=== PATIENT | female | born 1970 | race Caucasian/White ===

== ENCOUNTER 2017-08-05 22:04 | Emergency (ER) | payer OTHER ==
[~2017-08-05] VITALS: Ht 175.3 cm; Wt 95.0 kg
[2017-08-05 22:07] VITALS: BP 142/81; PULSE 53; RESP 20; TEMP 97.6; O2SAT 97
[2017-08-05] MEDS ORDERED: antidepressant (23:27)
[2017-08-05] MEDS ORDERED: LEVA250T14 PO (23:27)
[2017-08-05] MEDS ORDERED: LEVO25TA4 PO (23:27)
[2017-08-05] MEDS ORDERED: MORPHINE SULFATE 4 MG/ML INJ IV PUSH ONE (23:30)
--- NOTE | 2017-08-05 23:41 | PD ---
HPI Chief Complaint: Fall Time Seen by Provider: 23:21 Travel History International Travel<30 days: No Contact w/Intl Traveler<30days: No Traveled to known affect area: No History of Present Illness HPI Patient is a 46-year-old female who presents to emergency room complaints of left sided shoulder pain. Patient reports that one hour prior to arrival to the emergency room, she tripped on a curb and landed onto her left shoulder. Patient reports no trauma to the head or neck, denies any loss of consciousness. Patient reports that she has pain to her left shoulder, reports that she is able to range of motion her left shoulder. Patient reports that her last full meal was around 4 PM tonight. Patient currently is not on any anticoagulants, denies any chest pain or shortness of breath. Patient with no other complaints at this time. PFSH Past Medical History Medical History: Denies Significant Hx Respiratory: Yes (HX OF BRONCHITIS) ?: Not Ectopic : Yes Past Surgical History Hysterectomy: Yes (partial ) Other Surgery: Yes (breast augmentation ) Social History Alcohol Use: Yes Tobacco Use: Yes Substance Use: No Allergies-Medications (Allergen,Severity, Reaction): Coded Allergies: Penicillins (Verified Allergy, Severe, 08/05/17) Reported Meds & Prescriptions Reported Meds & Active Scripts Active Reported Levaquin (Levofloxacin) Unknown Strength Tablet Unknown Dose PO DAILY [antidepressant ] Levothyroxine (Levothyroxine Sodium) Unknown Strength Tab Unknown Dose PO DAILY Review of Systems General / Constitutional: No: Fever Eyes: No: Visual changes HENT: No: Headaches Cardiovascular: No: Chest Pain or Discomfort Respiratory: No: Shortness of Breath Gastrointestinal: No: Abdominal Pain Genitourinary: No: Dysuria Musculoskeletal: Positive: Limited ROM (left shoulder), Pain (left shoulder) Skin: No Rash Neurologic: No: Weakness Psychiatric: No: Depression Endocrine: No: Polydipsia Hematologic/Lymphatic: No: Easy Bruising Physical Exam Narrative GENERAL: Mild distress SKIN: Focused skin assessment warm/dry. HEAD: Atraumatic. Normocephalic. EYES: Pupils equal and round. No scleral icterus. No injection or drainage. ENT: No nasal bleeding or discharge. Mucous membranes pink and moist. NECK: Trachea midline. No JVD. CARDIOVASCULAR: Regular rate and rhythm. No murmur appreciated. RESPIRATORY: No accessory muscle use. Clear to auscultation. Breath sounds equal bilaterally. GASTROINTESTINAL: Abdomen soft, non-tender, nondistended. Hepatic and splenic margins not palpable. MUSCULOSKELETAL: LUE: patient with no obvious open deformity, patient with good range of motion to left elbow and left wrist, pulses intact, neurovascular intact, patient unable to range of motion her left shoulder RUE: normal exam LLE & RLE: normal exam, patient ambulating in ER with normal gait. NEUROLOGICAL: Awake and alert. No obvious cranial nerve deficits. Motor grossly within normal limits. Normal speech. PSYCHIATRIC: Appropriate mood and affect; insight and judgment normal. Data Data Last Documented VS Vital Signs Date Time Temp Pulse Resp B/P (MAP) Pulse Ox O2 Delivery O2 Flow Rate FiO2 08/05/17 22:07 97.6 53 20 142/81 (101) 97 Room Air Orders Orders Shoulder, Complete (>2vws) (08/05/17 ) Humerus (Min 2vws) (08/05/17 ) Iv Access Insert/Monitor (08/05/17 23:25) Ecg Monitoring (08/05/17 23:25) Morphine Inj (Morphine Inj) (08/05/17 23:30) Chest, Single Ap (08/05/17 ) Radiology Film Requests (08/06/17 ) [facility] Medical Decision Making Medical Screen Exam Complete: Yes Emergency Medical Condition: Yes Interpretation(s) Vital Signs Date Time Temp Pulse Resp B/P (MAP) Pulse Ox O2 Delivery O2 Flow Rate FiO2 08/05/17 22:07 97.6 53 20 142/81 (101) 97 Room Air Differential Diagnosis Differential includes shoulder dislocation, humerus fracture Narrative Course 46-year-old female who presents to emergency with complaints of left shoulder pain after she tripped and fell over a curb one hour prior to presentation to the emergency room. Patient is currently not on any anticoagulants. An IV was placed for administration of pain medications. X-ray of the shoulder and humerus ordered. Last Impressions Shoulder X-Ray 08/05/17 0000 Signed Impressions: Service Date/Time: Sunday, August 06, 2017 00:10 - CONCLUSION: Acute comminuted proximal humeral fracture as detailed above. Bishop Yan Jr., MD Humerus X-Ray 08/05/17 0000 Signed Impressions: Service Date/Time: Sunday, August 06, 2017 00:08 - CONCLUSION: Comminuted proximal humeral fracture as detailed above. Bishop Yan Jr., MD Diagnosis Primary Impression: Fracture, humerus Referrals: Leonardo Koch MD Patient Instructions: General Instructions, Narcotic given in the ED Additional Instructions: Please call orthopedic surgeon first thing in the morning for earliest evaluation, please bring a copy of your radiology study given to you today for follow up Return to ER if symptoms worsen or progress Return to ER as needed Please do not drive or operate heavy machinery while taking narcotic pain medications Med/Other Pt SpecificInfo: Prescription(s) given Scripts Ibuprofen (Ibuprofen) 600 Mg Tab 600 MG PO Q6H Y for Pain/Inflammation, #40 TAB 0 Refills Prov: Siri Uriostegui DO 08/06/17 Oxycodone-Acetaminophen (Percocet) 5-325 mg Tab 1 TAB PO Q6H Y for PAIN, #20 TAB 0 Refills Prov: Siri Uriostegui DO 08/06/17 Siri Uriostegui DO Aug 05, 2017 23:41
--- NOTE | 2017-08-06 00:42 | RADRPT ---
EXAM DATE/TIME: 08/06/2017 00:08 [facility] COMPARISON: SHOULDER LEFT COMPLETE (>2VWS), August 06, 2017, 0:10. INDICATIONS : Pt tripped over curb, landed on left arm. Pain left shoulder MEDICAL HISTORY : None. SURGICAL HISTORY : None. ENCOUNTER: Initial ACUITY: 1 day PAIN SCORE: 10/10 LOCATION: Left Humerus FINDINGS: There is a comminuted fracture volar proximal humerus. There is approximately 1 cm separation of a do minant fracture fragment. No Sami or distraction. The remaining humerus is intact. CONCLUSION: Comminuted proximal humeral fracture as detailed above. Bishop Yan Jr., MD on August 06, 2017 at 0:39 Board Certified Radiologist. This report was verified electronically.
--- NOTE | 2017-08-06 00:45 | RADRPT ---
EXAM DATE/TIME: 08/06/2017 00:10 [facility] COMPARISON: No previous studies available for comparison. INDICATIONS : Pt tripped over curb, landed on left arm. Pain left shoulder MEDICAL HISTORY : None. SURGICAL HISTORY : None. ENCOUNTER: Initial ACUITY: 1 day PAIN SCORE: 10/10 LOCATION: Left Shoulder FINDINGS: There is an acute comminuted fracture involving the proximal humeral neck and adjacent diaphysis. The re is 1 cm of separation of a major fracture fragment. No angulation or distraction. Scapula and clav icle are intact. CONCLUSION: Acute comminuted proximal humeral fracture as detailed above. Bishop Yan Jr., MD on August 06, 2017 at 0:41 Board Certified Radiologist. This report was verified electronically.
--- NOTE | 2017-08-06 00:46 | RADRPT ---
EXAM DATE/TIME: 08/06/2017 00:16 [facility] COMPARISON: No previous studies available for comparison. INDICATIONS : Pt tripped over curb, landed on left arm. Pain left shoulder MEDICAL HISTORY : None. SURGICAL HISTORY : None. ENCOUNTER: Initial ACUITY: 1 day PAIN SCORE: 6/10 LOCATION: Bilateral chest FINDINGS: A single view of the chest demonstrates the lungs to be symmetrically aerated without evidence of mas s, infiltrate or effusion. The cardiomediastinal contours are unremarkable. Acute proximal humeral f racture detailed in the left shoulder discussion. CONCLUSION: 1. No acute cardio pulmonary disease. 2. Acute left proximal humeral fracture. Bishop Yan Jr., MD on August 06, 2017 at 0:43 Board Certified Radiologist. This report was verified electronically.
[2017-08-06] MEDS ORDERED: IBUP-232 PO (00:52)
[2017-08-06] MEDS ORDERED: PERC5TAB12 PO (00:52)
[2017-08-06] MEDS ORDERED: oxyCODONE/ACETAMINOPHEN 5 MG/325 MG TAB PO ONE (01:30)
[2017-08-14] MEDS ORDERED: ESCI20TA PO (09:38)
[2017-08-14] MEDS ORDERED: HYDR-3111 PO (09:38)
[2017-08-14] MEDS ORDERED: LEVO25TA4 PO (09:38)
== END 2017-08-06 01:46 | disposition home or self-care (01) ==
LOC: NEPC 22:04
DX: S42.202A Unspecified fracture of upper end of left humerus, initial encounter for closed fracture (principal); W18.09XA Striking against other object with subsequent fall, initial encounter; Y93.01 Activity, walking, marching and hiking; Y92.480 Sidewalk as the place of occurrence of the external cause
CPT/HCPCS: 71010; 73030; 73060; 96374; 99284; J2270

== ENCOUNTER → 2017-08-14 | Outpatient (CLI) | payer OTHER ==
[~2017-08-14] MED LIST: ESCI20TA PO; HYDR-3111 PO; HYDR-3516 PO; IBUP-232 PO; LEVA250T14 PO; LEVO25TA4 PO; PERC5TAB12 PO; antidepressant
[2017-08-14 09:45] LABS: AUTOMATED NEUTROPHIL # 3.5 TH/MM3 (1.8-7.7); BASOPHIL # 0.1 TH/MM3 (0-0.2); BASOPHIL % 0.9 % (0.0-2.0); EOSINOPHIL # 0.3 TH/MM3 (0-0.4); EOSINOPHIL % 4.3 % (0.0-4.0); HEMATOCRIT 37.3 % (35.0-46.0); HEMO FLAGS DIFF FINAL; LYMPH % 23.9 % (9.0-44.0); LYMPHOCYTE # 1.5 TH/MM3 (1.0-4.8); MEAN CELL VOLUME 99.5 FL (80.0-100.0); MEAN CORPUSCULAR HEMOGLOBIN 33.8 PG (27.0-34.0); MONO % 15.5 % (0.0-8.0); NEUT % 55.4 % (16.0-70.0); PLATELET COUNT 319 TH/MM3 (150-450); RED BLOOD COUNT 3.75 MIL/MM3 (4.00-5.30); RED CELL DISTRIBUTION WIDTH 14.8 % (11.6-17.2); WHITE BLOOD COUNT 6.4 TH/MM3 (4.0-11.0)
[2017-08-14 10:11] LABS: ANION GAP 3 MEQ/L (5-15); AST (GOT) 25 U/L (15-37); BICARBONATE 32.3 MEQ/L (21.0-32.0); BLOOD UREA NITROGEN 14 MG/DL (7-18); CHLORIDE 106 MEQ/L (98-107); GLOMERULAR FILTRATION RATE 99 ML/MIN (>89); GLUCOSE,FASTING 89 MG/DL (74-99); POTASSIUM 4.4 MEQ/L (3.5-5.1); SODIUM (NA) 141 MEQ/L (136-145)
[2017-08-14 10:12] LABS: ALT (GPT) 25 U/L (10-53)
[2017-08-14 10:15] LABS: ALKALINE PHOSPHATASE 64 U/L (45-117); TOTAL BILIRUBIN ADULT 0.7 MG/DL (0.2-1.0)
--- NOTE | 2017-08-15 15:44 | EKG ---
Date Performed: 08/14/2017 Time Performed: 09:59:41 PTAGE: 46 years EKG: Sinus rhythm WITH FIRST DEGREE AV BLOCK ABNORMAL ECG NO PREVIOUS TRACING DOCTOR: Unique Harrison Interpretating Date/Time 08/15/2017 15:42:39
== END ==
LOC: CPRE 09:13
PROVIDERS: ATTEND Orthopaedic Surgery
DX: Z01.810 Encounter for preprocedural cardiovascular examination (principal); Z01.812 Encounter for preprocedural laboratory examination; R94.31 Abnormal electrocardiogram [ECG] [EKG]; S42.222D 2-part displaced fracture of surgical neck of left humerus, subsequent encounter for fracture with routine healing; X58.XXXD Exposure to other specified factors, subsequent encounter
CPT/HCPCS: 36415; 80053; 85025; 93005

== ENCOUNTER 2017-08-15 07:21 | Observation (INO) | payer OTHER ==
[~2017-08-15] VITALS: Ht 174 cm; Wt 110.0 kg
[~2017-08-15 07:21] MED LIST changes: -HYDR-3516 PO; -LEVA250T14 PO; -PERC5TAB12 PO; -antidepressant
[2017-08-15] MEDS ORDERED: VANCOMYCIN 1250 MG/NS 250 ML (for 70-84 kg) IV SCH ×2 (08:00)
[2017-08-15] MEDS: CLINDAMYCIN 900 MG/NS 100 ML IV SCH ×2 (08:12)
[2017-08-15] MEDS ORDERED: POVIDONE IODINE 7.5% SCRUB 118 ML BOTTLE TOPICAL SCH (08:15)
[2017-08-15] MEDS ORDERED: LACTATED RINGER'S 1000 ML IV PRN (08:15)
[2017-08-15] MEDS ORDERED: METOPROLOL TARTRATE 25 MG TAB PO PRN (08:15)
[2017-08-15] MEDS ORDERED: POVIDONE IODINE 5% (ANTISEPSIS KIT) 4 APPLICATIONS EACH NARE PRN (08:15)
[2017-08-15] MEDS ORDERED: DO NOT ADM ANY ANTICOAGULANT DRUGS PRN ×2 (08:15→13:09)
[2017-08-15] MEDS ORDERED: INSULIN HUMAN REGULAR 1,000 UNITS/10 ML VIAL SQ PRN (08:15)
[2017-08-15] MEDS ORDERED: SODIUM CHLORID 0.9% 500 ML IV PRN (08:15)
[2017-08-15] MEDS ORDERED: CHLORHEXIDINE GLUCONATE 2 % 1 PACK (2 CLOTHS) TOPICAL PRN (08:15)
[2017-08-15] MEDS ORDERED: FAMOTIDINE 20 MG/2 ML VIAL ONE (08:43)
[2017-08-15] MEDS ORDERED: ACETAMINOPHEN 1000 MG/100 ML 100 ML IV ONE (08:43)
[2017-08-15] MEDS ORDERED: GENTAMICIN SULFATE 80 MG/2 ML VIAL ONE (08:54)
--- NOTE | 2017-08-15 09:32 | MH ---
cc: CORYMIKE DATE OF ADMISSION: 08/15/2017 DATE OF 1970 PREOPERATIVE DIAGNOSIS Comminuted displaced two-part fracture, left proximal humerus. PAST HISTORY She had history of seizures in her childhood but not in her adult life. She is not taking any antiseizure medication in her adult life. She suffers from depression, she is on antidepressants. She is a smoker and she has been counseled on the ill-effects of smoking on bone healing and tissue healing and has been advised to go on Chantix through the help of her primary care physician. She said she had used Chantix in the past and she does not see any problem doing that now. Hypothyroidism for which she takes thyroid supplements. 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 She also drinks alcohol moderately. PAST SURGICAL HISTORY 1. Hysterectomy. 2. Liposuction followed by infection for which she had to have incision and drainage in the back of both shoulders. She says it did not affect her bone or joint and it did not result in any restriction of range of motion. PRESENT HISTORY She fell on 08/05/2017 sustaining the injury to this left arm, seen in [facility] Emergency Room. She was evaluated, x-rayed and referred for outpatient care. She was seen by the undersigned on August 06, at which time it was decided to treat her by nonoperative means. She called 2 days later indicating that she felt that the fracture had moved and she had a lot of pain and therefore she was brought back and a new set of x-rays revealed significant displacement and therefore she is now being brought in for open reduction, internal fixation of this fracture of the plate and screws. The diagnosis, treatment, the potential risks, hazards and complications, expected results and postoperative course have all been discussed. We talked to her about possibility of delayed union, nonunion, possible permanent restriction range of motion of the shoulder and possibility of neurovascular injury. Informed consent has been obtained. She has followed the infection prevention protocol with [facility]. PHYSICAL EXAMINATION GENERAL: Physical examination reveals a moderately overweight white female who is 46 years old. HEENT: Head is normocephalic. Pupils reactive to light. She wears glasses. Extraocular movements normal. Face symmetrical. HEART: Regular rhythm. No murmurs. LUNGS: Clear to auscultation. ABDOMEN: Soft and supple. LEFT SHOULDER: Left shoulder has moderate swelling and lot of ecchymosis. There is a scar in the posterior axillary fold. More detailed examination not possible because of pain and the fracture. She has good radial pulse and no distal neurovascular deficit noted. MD ARSENIO Valdivia/ALEAH /8:49 AM /9:05 AM
[2017-08-15] MEDS ORDERED: DEXAMETHASONE SOD PHOS PF 10 MG/ML VIAL IV ONE (11:12)
[2017-08-15] MEDS ORDERED: BUPIVACAINE HCL PF 0.5% 30 ML VIAL NERV BLOCK ONE (11:12)
[2017-08-15] MEDS ORDERED: LIDOCAINE HCL 1% PF 5 ML AMPULE OTHER ONE (12:00)
[2017-08-15] MEDS ORDERED: ROCURONIUM INJ 50 MG/5 ML SYRINGE IV PUSH ONE (12:00)
[2017-08-15] MEDS ORDERED: PROPOFOL 200 MG/20 ML AMP IV ONE (12:00)
[2017-08-15] MEDS ORDERED: LACTATED RINGER'S 1000 ML INJ 1,000 ML IV ONE (12:00)
[2017-08-15] MEDS ORDERED: PHENYLEPH/NS 1000 MCG/10 ML SYR IV ONE (12:00)
[2017-08-15] MEDS ORDERED: MIDAZOLAM HCL 2 MG/2 ML VIAL IV ONE (12:00)
[2017-08-15] MEDS ORDERED: SODIUM CHLOR 0.9% (EXCEL) INJ 250 ML IV ONE (12:00)
[2017-08-15] MEDS ORDERED: NEOSTIGMINE 3 MG/3 ML SYR IV ONE (12:00)
[2017-08-15] MEDS ORDERED: PHENYLEPHRINE HCL 10 MG/ML VIAL IV ONE (12:00)
[2017-08-15] MEDS ORDERED: ePHEDrine/NS 25 MG/5 ML SYR IV ONE (12:00)
[2017-08-15] MEDS ORDERED: ONDANSETRON HCL 4 MG/2 ML VIAL IV PUSH ONE (12:00)
[2017-08-15] MEDS ORDERED: GLYCOPYRROLATE 1 MG/5 ML SYRINGE IV PUSH ONE (12:00)
[2017-08-15] MEDS ORDERED: ONDANSETRON HCL 4 MG/2 ML VIAL IV PRN (12:45)
[2017-08-15] MEDS ORDERED: ACETAMINOPHEN/HYDROcodone 325 MG/5 MG TAB PO PRN (12:45)
[2017-08-15] MEDS ORDERED: SODIUM CHLORIDE 0.9% FLUSH 5 ML FLUSH IVF PRN (12:45)
--- NOTE | 2017-08-15 13:26 | MP ---
cc: MIKE OHARA DATE OF SURGERY: 08/15/2017 PREOPERATIVE DIAGNOSIS Comminuted and displaced two-part fracture, surgical neck left humerus. POSTOPERATIVE DIAGNOSIS Comminuted and displaced two-part fracture, surgical neck left humerus. OPERATIVE PROCEDURE 1. Open reduction, internal fixation of comminuted fracture surgical neck left humerus with plate and screws. 2. Allograft bone graft (cancellous bone and DBX putty). SURGEON Dr. Ohara. ANESTHESIA General. TECHNIQUE After induction of general anesthesia, great care and time was taken to properly position the patient in a [id number] position on a plastic wedge supported by folded blankets on the Kain table, with the head and neck well-supported. The lower extremities were supported on multiple folded blankets with the hips and knees in flexion and secured to the operating table. The waist area and the torso were also secured to the operating table with three-inch tape or folded blankets. The left upper extremity and left shoulder were then prepped with alcohol and ChloraPrep and draped in routine fashion. Adherent Ioban drapes were placed all around the left shoulder including the axilla. A deltopectoral incision was made deepened through thick subcutaneous tissue. The cephalic vein was identified and protected and the deltopectoral interval was developed. Bursa was dissected, blunt dissection carried out all around the proximal humerus. The biceps tendon was identified in its sheath and left alone for proper orientation. The fracture was carefully delineated. Only about 1 cm of pectoralis major was released. About 50% of deltoid attachment had to be released to get a proper look at the fracture, put a plate on and properly reduce it. There were two butterfly fragments. The proximal butterfly fragment was still attached to soft tissue to the proximal fragment and therefore was left undisturbed because it may even contain some of the attachment of the rotator cuff, especially infraspinatus. The other butterfly fragment measured about 5 cm long, about 15 mm at its widest portion adjacent to the bicipital groove. This was reduced to the shaft and fixed with a single interfragmentary screw. We then proceeded to evaluate the large fragment attached to the proximal portion and it was released from soft tissue distally but not proximally. Traction was applied and this fracture was reduced and everything held with bone clamps. Fluoroscopic imaging revealed mild residual displacement but no angulation, no rotational issue. This large superolateral fragment was then fixed to the medial shaft with two interfragmentary screws. It did decompress this thereby decreasing the size of the canal but it gave us good stability so as to be able to put a long plate. A long Synthes humerus plate was then placed and fixed to the proximal fragment including the head with seven locking screws. We put four bicortical distal screws getting good position, alignment and fixation. There was a gap between the midportion of the plate and the lateral aspect of the humerus where the large fragment got over-compressed and this was filled with cancellous bone mixed with DBX putty and filled it up. Prior to putting the bone graft the area was thoroughly lavaged and suctioned out with saline. A mixture of 100 mL of saline and 17.5 mL of Betadine was then placed in the surgical site for about five minutes for antisepsis. Closure was carried out by reattaching the deltoid with #2 Vicryl to the distal holes of the plate. The deltopectoral groove was closed with #2 Stratafix, subcutaneous tissue with 2-0 Vicryl, skin with 3-0 subcuticular Stratafix and Steri-Strips. Dressings were applied with Xeroform, 4x4s, ABD, Medipore tape and sling and swathe. The patient was transferred to the recovery room in satisfactory condition. The patient tolerated the procedure well. TRANSFUSIONS AND COMPLICATIONS None. POSTOPERATIVE CONDITION Satisfactory. PROGNOSIS Guarded to good. ESTIMATED BLOOD LOSS 150 mL. ADDENDUM It should be noted a generous amount of fluoroscopic imaging was carried out throughout the procedure and the proximal screws were visualized at 90 degree angles as well as the rotational angle to make sure none of the screws came close to the subchondral bone. MD ARSENIO Valdivia/BILL /12:57 PM /1:09 PM
[2017-08-15] MEDS: LACTATED RINGER'S 1000 ML INJ 1,000 ML IV SCH ×2 (15:00→23:29)
[2017-08-15] MEDS ORDERED: MORPHINE SULFATE 4 MG/ML INJ IV PUSH PRN (15:30)
[2017-08-15] MEDS: KETOROLAC TROMETHAMINE 30 MG/ML (IVP) VIAL IVP SCH ×2 (16:00→19:02)
--- NOTE | 2017-08-15 16:00 | RADRPT ---
EXAM DATE/TIME: 08/15/2017 11:37 [facility] COMPARISON: No previous studies available for comparison. INDICATIONS : ORIF left shoulder. MEDICAL HISTORY : Comminuted proximal humeral fracture SURGICAL HISTORY : None. ENCOUNTER: Initial ACUITY: 1 day PAIN SCORE: Non-responsive. LOCATION: Left shoulder. FINDINGS: Plate with screws is seen bridging the fracture of the proximal humerus. Alignment is anatomic. CONCLUSION: Anatomic alignment. Kali Rivera MD FACR on August 15, 2017 at 15:55 Board Certified Radiologist. This report was verified electronically.
[2017-08-15 16:56] VITALS: BP 112/68; PULSE 68; RESP 18; TEMP 96.9; O2SAT 96
[2017-08-15 19:24] VITALS: BP 83/69; PULSE 70; RESP 16; TEMP 97.4; O2SAT 96
[2017-08-15] MEDS: CLINDAMYCIN INJ 900 MG in SODIUM CHLORIDE 0.9% INJ 100 ML IV SCH (19:30)
[2017-08-15] MEDS: SODIUM CHLORIDE 0.9% FLUSH 5 ML FLUSH IVF SCH (20:46)
[2017-08-15] MEDS ORDERED: ACETAMINOPHEN 1000 MG/100 ML 100 ML IV SCH (23:00)
[2017-08-15] MEDS: ACETAMINOPHEN/HYDROcodone 325 MG/5 MG TAB PO PRN (23:56)
[2017-08-16] VITALS: BP 102/60; PULSE 66; RESP 16; TEMP 96.3; O2SAT 94
[2017-08-16] MEDS: CLINDAMYCIN INJ 900 MG in SODIUM CHLORIDE 0.9% INJ 100 ML IV SCH ×2 (02:05→08:48)
[2017-08-16] MEDS: CLINDAMYCIN 900 MG/NS 100 ML IV SCH ×2 (02:05)
[2017-08-16 03:45] VITALS: BP 103/71; PULSE 67; RESP 16; TEMP 96.7; O2SAT 96
[2017-08-16] MEDS: ACETAMINOPHEN/HYDROcodone 325 MG/5 MG TAB PO PRN (05:34)
[2017-08-16] MEDS ORDERED: LEVOTHYROXINE SODIUM 25 MCG TAB PO SCH (06:00)
[2017-08-16] MEDS: LACTATED RINGER'S 1000 ML INJ 1,000 ML IV SCH (06:24)
--- NOTE | 2017-08-16 07:38 | HHI.DCPOC ---
Discharge Care Plan Diagnosis: (1) Fracture of neck of left humerus Your Health Problems Are: Difficulty with ADL Additional Problems depression Smoking, will get Rx for Chantrix from PCP Goals to Promote Your Health * To prevent worsening of your condition and complications * To maintain your health at the optimal level Directions to Meet Your Goals Take your medications as prescribed Follow your dietary instruction Follow activity as directed Keep your appointments as scheduled Take your immunizations and boosters as scheduled If your symptoms worsen call your PCP, if no PCP go to Urgent Care Center or Emergency Room Smoking is Dangerous to Your Health. Avoid second hand smoke Call the 24-hour hour crisis hotline for domestic abuse at Eulalio Ohara MD Aug 16, 2017 07:38
--- NOTE | 2017-08-16 07:43 | PD.ORT.PN ---
Subjective Post Op Day #: 1 Pain Scale: 1 Subjective Remarks Block not worn off yet, I dont like it Distance Walked Going to [facility] Objective Vitals Last 72 hours Impressions Shoulder X-Ray 08/15/17 0000 Signed Impressions: Service Date/Time: Tuesday, August 15, 2017 11:37 - CONCLUSION: Anatomic alignment. Kali Rivera MD FACR Vital Signs Date Time Temp Pulse Resp B/P (MAP) Pulse Ox O2 Delivery O2 Flow Rate FiO2 08/16/17 03:45 96.7 67 16 103/71 (82) 96 08/16/17 00:00 96.3 66 16 102/60 (74) 94 08/15/17 19:24 97.4 70 16 83/69 (74) 96 08/15/17 16:56 96.9 68 18 112/68 (83) 96 08/15/17 16:30 Room Air 08/15/17 16:00 98.0 84 17 143/73 (96) 95 Room Air 08/15/17 15:30 91 19 106/70 (82) 97 Room Air 08/15/17 15:00 73 20 95/51 (66) 95 Nasal Cannula 2 08/15/17 14:45 69 14 93/51 (65) 96 Nasal Cannula 2 08/15/17 14:30 67 13 92/51 (65) 95 Nasal Cannula 2 08/15/17 14:15 70 21 92/50 (64) 96 Nasal Cannula 2 08/15/17 14:00 85 20 106/55 (72) 95 Nasal Cannula 2 08/15/17 13:45 65 19 95/50 (65) 94 Nasal Cannula 2 08/15/17 13:30 74 19 97/53 (68) 95 Nasal Cannula 2 08/15/17 13:15 72 18 102/54 (70) 92 Nasal Cannula 2 08/15/17 13:09 98.8 87 23 112/90 (97) 95 Nasal Cannula 2 I/O 08/15/17 08/15/17 08/15/17 08/16/17 08/16/17 08/16/17 07:00 15:00 23:00 07:00 15:00 23:00 Intake Total 2406 ml 1045 ml 981 ml 480 ml Output Total 300 ml Balance 2106 ml 1045 ml 981 ml 480 ml Intake Oral 920 ml 480 ml IV Total 106 ml 125 ml 981 ml Other 2300 ml Output Estimated Blood Loss 300 ml # Voids 3 # Bowel Movements 0 Objective Remarks A,A, and O. In sling and swathe. New dressings on, dry Still has not recovered fully from nerve block. Has good radial pulse. Assessment & Plan Ortho Post Op Day #: 1 Problem List: Assessment and Plan Discharge home Family will change dressings Adviced S & S 11/06 Large ice bag several days. NO SMOKING. Will get Rx chantrix from PCP to see me Sunday, to call for apptt. Rx hydrocodone Eulalio Oahra MD Aug 16, 2017 07:43
[2017-08-16] MEDS ORDERED: HYDR-3516 PO (07:45)
[2017-08-16 08:00] VITALS: BP 101/75; PULSE 57; RESP 18; TEMP 97.6; O2SAT 95
[2017-08-16] MEDS: KETOROLAC TROMETHAMINE 30 MG/ML (IVP) VIAL IVP SCH (08:49)
[2017-08-16] MEDS: SODIUM CHLORIDE 0.9% FLUSH 5 ML FLUSH IVF SCH (08:49)
[2017-08-16] MEDS ORDERED: ESCITALOPRAM OXALATE 20 MG TAB PO SCH (09:00)
[2017-08-16 09:28] VITALS: O2SAT 96
[2017-08-16 09:49] VITALS: RESP 18
== END 2017-08-16 11:04 | disposition home health service (06) ==
LOC: HSDC 07:21 → HSDI 12:53 → N06B 16:41
PROVIDERS: ADMIT Orthopaedic Surgery; ATTEND Orthopaedic Surgery
DX: S42.222A 2-part displaced fracture of surgical neck of left humerus, initial encounter for closed fracture (principal); E03.9 Hypothyroidism, unspecified; W18.09XA Striking against other object with subsequent fall, initial encounter; Y93.01 Activity, walking, marching and hiking; Y92.480 Sidewalk as the place of occurrence of the external cause; F17.210 Nicotine dependence, cigarettes, uncomplicated
CPT/HCPCS: 01630; 20900; 23615; 73030; 76000; 96365; 96366; 96375; 96376; C1713; G0378; J0131; J1100; J1885; J2250; J2370; J2405; J2710; J3010; J3370; J7050; J7120; J1580